=== PATIENT | female | born 1980 | race Caucasian/White ===

== ENCOUNTER 2016-03-24 20:15 | Inpatient (IN) | payer OTHER ==
[2016-03-24 20:19] VITALS: O2SAT 96
[2016-03-24] MEDS ORDERED: ceFAZolin 2 GM PREMIX 50 ML ONE (20:31)
[2016-03-24] MEDS ORDERED: MORPHINE SULFATE 8 MG/ML INJ ONE (20:31)
[2016-03-24] MEDS ORDERED: ONDANSETRON HCL 4 MG/2 ML VIAL ONE (20:32)
[2016-03-24] MEDS ORDERED: ceFAZolin 2 GM PREMIX 50 ML IV STA (20:53)
[2016-03-24] MEDS ORDERED: DIPHTH/TETANUS/ACEL PERTUSSIS (BOOSTER) 0.5 ML VIAL/PFS IM ONE (20:53)
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
[2016-03-24 20:59] LABS: I-STAT POTASSIUM 3.9 MMOL/L (3.5-4.9)
[2016-03-24 21:02] LABS: AUTOMATED NEUTROPHIL # 7.9 TH/MM3 (1.8-7.7); BASOPHIL # 0.1 TH/MM3 (0-0.2); BASOPHIL % 0.5 % (0.0-2.0); EOSINOPHIL # 0.2 TH/MM3 (0-0.4); EOSINOPHIL % 1.6 % (0.0-4.0); HEMATOCRIT 40.4 % (35.0-46.0); LYMPHOCYTE # 5.8 TH/MM3 (1.0-4.8); MEAN CELL VOLUME 85.6 FL (80.0-100.0); MEAN CORPUSCULAR HEMOGLOBIN 29.5 PG (27.0-34.0); MEAN CORPUSCULAR HGB CONC 34.5 % (32.0-36.0); MONO % 5.9 % (0.0-8.0); PLATELET COUNT 480 TH/MM3 (150-450); RED BLOOD COUNT 4.72 MIL/MM3 (4.00-5.30); RED CELL DISTRIBUTION WIDTH 14.2 % (11.6-17.2); WHITE BLOOD COUNT 14.9 TH/MM3 (4.0-11.0)
[2016-03-24 21:04] LABS: HEMO FLAGS AUTO DIFF
[2016-03-24 21:12] LABS: APTT (PATIENT) 23.1 SEC (24.3-30.1); PROTHROMBIN TIME - PATIENT 10.6 SEC (9.8-11.6)
[2016-03-24] MEDS: SODIUM CHLOR 0.9% 1000 ML INJ 1,000 ML IV SCH (21:39)
[2016-03-24] MEDS ORDERED: IOHEXOL 350 MG/ML 10 ML VIAL (for RAD DIAG) IV ONE (21:44)
[2016-03-24] MEDS ORDERED: ONDANSETRON HCL 4 MG/2 ML VIAL IV PRN (21:45)
[2016-03-24] MEDS ORDERED: CHLORHEXIDINE GLUCONATE 2 % 1 PACK (2 CLOTHS) TOP PRN (21:45)
[2016-03-24] MEDS ORDERED: MISCELLANEOUS NURSING INFORMATION XX SCH (21:45)
[2016-03-24] MEDS ORDERED: ENALAPRILAT 1.25 MG/ML VIAL IV PRN (21:45)
[2016-03-24] MEDS ORDERED: MAGNESIUM HYDROXIDE SUSP 30 ML CUP PO PRN (21:45)
[2016-03-24 21:49] LABS: BANDS 3 % (0-6); MYELOCYTES 2 % (0-0); NEUTROPHIL # MANUAL DIFF 6.9 TH/MM3 (1.8-7.7); POLYS (SEG NEUTROPHILS) 41 % (16-70); WBC DIFF SAMPLE 100
[2016-03-24 21:50] LABS: PLATELET ESTIMATE SMEAR HIGH (NORMAL); PLATELET MORPHOLOGY NORMAL (NORMAL); SCAN/DIFF FINAL DIFF MANUAL
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
[2016-03-24 22:00] VITALS: PULSE 100
[2016-03-24] MEDS: PANTOPRAZOLE SODIUM 40 MG VIAL IVP SCH (22:00)
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
[2016-03-24 22:42] LABS: AMPHETAMINE, URINE POS (NEG); BARBITURATES, URINE NEG (NEG); COCAINE, URINE NEG (NEG)
[2016-03-24 22:43] LABS: BLOOD, URINE MOD (NEG); COMMENT (UR) CULT NOT INDICATED; CULTURE IF INDICATED CULT NOT INDICATED; GLUCOSE,URINE TRACE mg/dL (NEG); KETONE, URINE NEG (NEG); MUCUS URINE FEW /lpf (OCC); NITRITE,URINE NEG (NEG); PH, URINE 6.5 (5.0-8.5); SQUAMOUS EPITHELIAL CELL URINE 2 /hpf (0-5); URINE COLOR YELLOW (YELLW/STRAW)
[2016-03-24] MEDS: HYDROmorphone HCL PF 1 MG/ML VIAL IV PRN (23:00)
[2016-03-24] MEDS ORDERED: oxyCODONE/ACETAMINOPHEN 5 MG/325 MG TAB PO PRN (23:00)
[2016-03-25] VITALS (10 sets, daily range): BP systolic 117–139; BP diastolic 67–78; PULSE 92–110; RESP 13–24; TEMP 97.6–98.2; O2SAT 96–100
[2016-03-25] MEDS: HYDROmorphone HCL PF 1 MG/ML VIAL IV PRN ×6 (02:03→21:38)
[2016-03-25] MEDS: oxyCODONE/ACETAMINOPHEN 10 MG/325 MG TAB PO PRN ×3 (03:30→20:21)
[2016-03-25] MEDS: CHLORHEXIDINE GLUCONATE 2 % 1 PACK (2 CLOTHS) TOP SCH (04:00)
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
[2016-03-25] MEDS: SODIUM CHLOR 0.9% 1000 ML INJ 1,000 ML IV SCH ×2 (06:47→17:39)
[2016-03-25] MEDS: DOCUSATE SODIUM 50 MG/SENNA 8.6 MG TAB PO SCH ×2 (08:45→21:30)
[2016-03-25] MEDS ORDERED: MAGNESIUM SULFATE INJ 2 GM in SODIUM CHLORIDE 0.9% INJ 96 ML IV PRN (08:45)
[2016-03-25] MEDS ORDERED: MAGNESIUM OXIDE 400 MG TAB PO PRN (08:45)
[2016-03-25] MEDS ORDERED: SODIUM PHOSPHATE INJ 30 MMOL in SODIUM CHLOR 0.9% 250 ML INJ 240 ML IV PRN (08:45)
[2016-03-25] MEDS ORDERED: POTASSIUM CHLOR 20 MEQ PREMIX 100 ML IV PRN ×2 (08:45)
[2016-03-25] MEDS ORDERED: POTASSIUM PHOSPHATE MONOBASIC 500 MG TAB PO/TUBE PRN (08:45)
[2016-03-25] MEDS: BACITRACIN TOP OINT 15 GM TUBE TOP SCH ×2 (08:45→21:39)
[2016-03-25] MEDS ORDERED: MAGNESIUM SULFATE INJ 4 GM in SODIUM CHLORIDE 0.9% INJ 92 ML IV PRN (08:45)
[2016-03-25] MEDS ORDERED: POTASSIUM PHOSPHATE INJ 30 MMOL in SODIUM CHLOR 0.9% 250 ML INJ 250 ML IV PRN (08:45)
[2016-03-25] MEDS ORDERED: RESP: ALBUTEROL 2.5 MG/3 ML NEB (PRN) NEB (08:45)
[2016-03-25] MEDS ORDERED: POTASSIUM CL 40 MEQ/30 ML LIQ UDC PO/TUBE PRN ×2 (08:45)
[2016-03-25] MEDS ORDERED: POTASSIUM CHLOR 40 MEQ PREMIX 100 ML IV-CENTRAL PRN ×2 (08:45)
[2016-03-25] MEDS ORDERED: POTASSIUM PHOSPHATE MONOBASIC 500 MG TAB PO PRN (08:45)
[2016-03-25] MEDS: METHOCARBAMOL 500 MG TAB PO SCH ×4 (08:46→21:30)
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
[2016-03-25] MEDS ORDERED: DOCUSATE SODIUM 100 MG CAP PO SCH (09:00)
[2016-03-25] MEDS: MAGNESIUM HYDROXIDE SUSP 30 ML CUP PO SCH (09:00)
[2016-03-25] MEDS: RESP: ALBUTEROL 2.5 MG/IPRATROPIUM 0.5 MG NEB (PRN) NEB (09:00)
[2016-03-25] MEDS: LIDOCAINE HCL 5% PATCH TD SCH (11:04)
[2016-03-25] MEDS: NICOTINE 14 MG/24 HR PATCH TD SCH (11:13)
[2016-03-25] MEDS: RESP: ALBUTEROL 2.5 MG/IPRATROPIUM 0.5 MG NEB (SCH) NEB ×3 (11:43→20:56)
[2016-03-25 12:58] LABS: AUTOMATED NEUTROPHIL # 9.5 TH/MM3 (1.8-7.7); BASOPHIL % 0.3 % (0.0-2.0); EOSINOPHIL % 0.2 % (0.0-4.0); HEMO FLAGS DIFF FINAL; LYMPH % 15.9 % (9.0-44.0); MEAN CELL VOLUME 87.6 FL (80.0-100.0); MEAN CORPUSCULAR HEMOGLOBIN 29.1 PG (27.0-34.0); MEAN CORPUSCULAR HGB CONC 33.2 % (32.0-36.0); MONO % 7.3 % (0.0-8.0); NEUT % 76.3 % (16.0-70.0); PLATELET COUNT 329 TH/MM3 (150-450); RED BLOOD COUNT 3.99 MIL/MM3 (4.00-5.30); RED CELL DISTRIBUTION WIDTH 14.3 % (11.6-17.2); WHITE BLOOD COUNT 12.5 TH/MM3 (4.0-11.0)
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
[2016-03-25 13:13] LABS: ALKALINE PHOSPHATASE 56 U/L (45-117); ALT (GPT) 48 U/L (10-53); ANION GAP 7 MEQ/L (5-15); AST (GOT) 33 U/L (15-37); BICARBONATE 23.2 MEQ/L (21.0-32.0); BLOOD UREA NITROGEN 16 MG/DL (7-18); CHLORIDE 111 MEQ/L (98-107); GLOMERULAR FILTRATION RATE 95 ML/MIN (>89); POTASSIUM 4.2 MEQ/L (3.5-5.1); SODIUM (NA) 141 MEQ/L (136-145); TOTAL BILIRUBIN ADULT 0.4 MG/DL (0.2-1.0)
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
[2016-03-25] MEDS: REMOVE OLD PATCH-LIDOCAINE T-DERMAL SCH (21:00)
[2016-03-25] MEDS: REMOVE OLD NICODERM (NICOTINE) PATCH TD SCH (21:00)
[2016-03-25] MEDS: PANTOPRAZOLE SODIUM 40 MG VIAL IVP SCH (21:30)
[2016-03-25] MEDS: SODIUM CHLORIDE 0.9% FLUSH 5 ML FLUSH IVF PRN (21:39)
[2016-03-26] VITALS (10 sets, daily range): BP systolic 116–154; BP diastolic 65–94; PULSE 85–122; RESP 18; TEMP 96.7–100; O2SAT 88–94
[2016-03-26] MEDS: oxyCODONE/ACETAMINOPHEN 10 MG/325 MG TAB PO PRN ×5 (00:18→17:58)
[2016-03-26] MEDS: RESP: ALBUTEROL 2.5 MG/IPRATROPIUM 0.5 MG NEB (SCH) NEB ×8 (00:48→23:37)
[2016-03-26] MEDS: HYDROmorphone HCL PF 1 MG/ML VIAL IV PRN ×8 (01:08→23:43)
[2016-03-26] MEDS: SODIUM CHLOR 0.9% 1000 ML INJ 1,000 ML IV SCH ×3 (02:10→23:47)
[2016-03-26] MEDS: CHLORHEXIDINE GLUCONATE 2 % 1 PACK (2 CLOTHS) TOP SCH (04:00)
[2016-03-26] MEDS: METHOCARBAMOL 500 MG TAB PO SCH ×3 (05:31→20:48)
[2016-03-26] MEDS ORDERED: LACTULOSE SYRUP 20 GM/30 ML CUP PO ONE (08:15)
[2016-03-26] MEDS: LIDOCAINE HCL 5% PATCH TD SCH (09:47)
[2016-03-26] MEDS: NICOTINE 14 MG/24 HR PATCH TD SCH (09:47)
[2016-03-26] MEDS: MAGNESIUM HYDROXIDE SUSP 30 ML CUP PO SCH (09:49)
[2016-03-26] MEDS: BACITRACIN TOP OINT 15 GM TUBE TOP SCH ×2 (09:50→20:52)
[2016-03-26] MEDS: DOCUSATE SODIUM 50 MG/SENNA 8.6 MG TAB PO SCH ×2 (09:51→20:48)
[2016-03-26 10:44] LABS: HEMATOCRIT 31.8 % (35.0-46.0); REVIEW FLAG FINAL
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
[2016-03-26] MEDS: PANTOPRAZOLE SOD 40 MG DELAYED RELEASE TAB PO SCH (20:48)
[2016-03-26] MEDS: REMOVE OLD PATCH-LIDOCAINE T-DERMAL SCH (20:50)
[2016-03-26] MEDS: REMOVE OLD NICODERM (NICOTINE) PATCH TD SCH (20:50)
[2016-03-27] VITALS (9 sets, daily range): BP systolic 110–161; BP diastolic 73–97; PULSE 109–127; RESP 16–22; TEMP 95.6–99.3; O2SAT 91–97
[2016-03-27] MEDS: RESP: ALBUTEROL 2.5 MG/IPRATROPIUM 0.5 MG NEB (PRN) NEB (02:07)
[2016-03-27] MEDS: HYDROmorphone HCL PF 1 MG/ML VIAL IV PRN ×2 (02:57→05:58)
[2016-03-27] MEDS: CHLORHEXIDINE GLUCONATE 2 % 1 PACK (2 CLOTHS) TOP SCH (04:00)
[2016-03-27] MEDS: RESP: ALBUTEROL 2.5 MG/IPRATROPIUM 0.5 MG NEB (SCH) NEB ×5 (04:13→21:21)
[2016-03-27] MEDS: METHOCARBAMOL 500 MG TAB PO SCH ×3 (05:58→21:14)
[2016-03-27] MEDS ORDERED: WALKER WHEELS/F1 MIS (06:22)
[2016-03-27] MEDS: oxyCODONE/ACETAMINOPHEN 10 MG/325 MG TAB PO PRN ×4 (07:37→21:14)
[2016-03-27] MEDS ORDERED: LACTULOSE SYRUP 20 GM/30 ML CUP PO ONE (08:00)
[2016-03-27] MEDS ORDERED: BISACODYL EC 5 MG TABEC PO ONE (08:00)
[2016-03-27] MEDS ORDERED: BISACODYL 10 MG SUPP RECTAL ONE (08:00)
[2016-03-27] MEDS: NICOTINE 14 MG/24 HR PATCH TD SCH (08:44)
[2016-03-27] MEDS: LIDOCAINE HCL 5% PATCH TD SCH (08:44)
[2016-03-27] MEDS: MAGNESIUM HYDROXIDE SUSP 30 ML CUP PO SCH (08:45)
[2016-03-27] MEDS: BACITRACIN TOP OINT 15 GM TUBE TOP SCH ×2 (08:45→21:16)
[2016-03-27] MEDS: DOCUSATE SODIUM 50 MG/SENNA 8.6 MG TAB PO SCH ×2 (08:45→21:14)
[2016-03-27 08:53] LABS: HEMATOCRIT 34.7 % (35.0-46.0); HEMO FLAGS AUTO DIFF; MEAN CELL VOLUME 86.2 FL (80.0-100.0); MEAN CORPUSCULAR HEMOGLOBIN 28.3 PG (27.0-34.0); MEAN CORPUSCULAR HGB CONC 32.8 % (32.0-36.0); PLATELET COUNT 234 TH/MM3 (150-450); RED BLOOD COUNT 4.02 MIL/MM3 (4.00-5.30); RED CELL DISTRIBUTION WIDTH 14.4 % (11.6-17.2); WHITE BLOOD COUNT 12.9 TH/MM3 (4.0-11.0)
[2016-03-27 09:06] LABS: ALKALINE PHOSPHATASE 59 U/L (45-117); ALT (GPT) 37 U/L (10-53); ANION GAP 10 MEQ/L (5-15); AST (GOT) 49 U/L (15-37); BICARBONATE 23.1 MEQ/L (21.0-32.0); CHLORIDE 102 MEQ/L (98-107); GLOMERULAR FILTRATION RATE 97 ML/MIN (>89); MAGNESIUM 1.9 MG/DL (1.5-2.5); SODIUM (NA) 135 MEQ/L (136-145); TOTAL BILIRUBIN ADULT 0.7 MG/DL (0.2-1.0)
[2016-03-27 09:17] LABS: BLOOD UREA NITROGEN 5 MG/DL (7-18)
[2016-03-27 09:35] LABS: EOSINOPHILS 2 % (0-4); NEUTROPHIL # MANUAL DIFF 9.8 TH/MM3 (1.8-7.7); PLATELET ESTIMATE SMEAR NORMAL (NORMAL); PLATELET MORPHOLOGY NORMAL (NORMAL); POLYS (SEG NEUTROPHILS) 76 % (16-70); SCAN/DIFF FINAL DIFF MANUAL; WBC DIFF SAMPLE 100
[2016-03-27] MEDS: SODIUM CHLOR 0.9% 1000 ML INJ 1,000 ML IV SCH ×2 (11:43→19:39)
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
[2016-03-27] MEDS ORDERED: SENN1TAB PO (13:35)
[2016-03-27] MEDS ORDERED: MILKSUS PO (13:35)
[2016-03-27] MEDS ORDERED: OXYGENTANK NAS.CANULA (15:55)
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
[2016-03-27] MEDS: REMOVE OLD PATCH-LIDOCAINE T-DERMAL SCH (21:00)
[2016-03-27] MEDS: REMOVE OLD NICODERM (NICOTINE) PATCH TD SCH (21:00)
[2016-03-27] MEDS: PANTOPRAZOLE SOD 40 MG DELAYED RELEASE TAB PO SCH (21:14)
[2016-03-28] VITALS (14 sets, daily range): BP systolic 118–141; BP diastolic 73–92; PULSE 111–125; RESP 18–22; TEMP 98.1–99.5; O2SAT 91–98
[2016-03-28] MEDS: RESP: ALBUTEROL 2.5 MG/IPRATROPIUM 0.5 MG NEB (SCH) NEB ×6 (00:12→19:33)
[2016-03-28] MEDS: oxyCODONE/ACETAMINOPHEN 10 MG/325 MG TAB PO PRN ×5 (01:15→22:30)
[2016-03-28] MEDS: CHLORHEXIDINE GLUCONATE 2 % 1 PACK (2 CLOTHS) TOP SCH (03:35)
[2016-03-28] MEDS: METHOCARBAMOL 500 MG TAB PO SCH ×3 (05:36→21:08)
[2016-03-28] MEDS: SODIUM CHLOR 0.9% 1000 ML INJ 1,000 ML IV SCH ×2 (05:39→15:39)
[2016-03-28] MEDS: DOCUSATE SODIUM 50 MG/SENNA 8.6 MG TAB PO SCH ×2 (09:30→21:08)
[2016-03-28] MEDS: NICOTINE 14 MG/24 HR PATCH TD SCH (09:30)
[2016-03-28] MEDS: MAGNESIUM HYDROXIDE SUSP 30 ML CUP PO SCH (09:30)
[2016-03-28] MEDS: BACITRACIN TOP OINT 15 GM TUBE TOP SCH ×2 (09:31→21:17)
[2016-03-28] MEDS: LIDOCAINE HCL 5% PATCH TD SCH (09:31)
[2016-03-28] MEDS ORDERED: OXYC1TAB36 PO (12:34)
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
[2016-03-28] MEDS: REMOVE OLD NICODERM (NICOTINE) PATCH TD SCH (21:00)
[2016-03-28] MEDS: REMOVE OLD PATCH-LIDOCAINE T-DERMAL SCH (21:00)
[2016-03-28] MEDS: PANTOPRAZOLE SOD 40 MG DELAYED RELEASE TAB PO SCH (21:08)
[2016-03-29] VITALS (9 sets, daily range): BP systolic 109–164; BP diastolic 73–96; PULSE 82–101; RESP 18–20; TEMP 96.7–98.6; O2SAT 90–98
[2016-03-29] MEDS: RESP: ALBUTEROL 2.5 MG/IPRATROPIUM 0.5 MG NEB (SCH) NEB ×2 (01:09→04:54)
[2016-03-29] MEDS: oxyCODONE/ACETAMINOPHEN 10 MG/325 MG TAB PO PRN ×3 (02:41→10:24)
[2016-03-29] MEDS: CHLORHEXIDINE GLUCONATE 2 % 1 PACK (2 CLOTHS) TOP SCH (04:00)
[2016-03-29] MEDS: METHOCARBAMOL 500 MG TAB PO SCH ×3 (06:24→21:01)
[2016-03-29] MEDS: MAGNESIUM HYDROXIDE SUSP 30 ML CUP PO SCH (09:19)
[2016-03-29] MEDS: DOCUSATE SODIUM 50 MG/SENNA 8.6 MG TAB PO SCH ×2 (09:19→21:01)
[2016-03-29] MEDS: NICOTINE 14 MG/24 HR PATCH TD SCH (09:19)
[2016-03-29] MEDS: LIDOCAINE HCL 5% PATCH TD SCH (09:20)
[2016-03-29] MEDS: BACITRACIN TOP OINT 15 GM TUBE TOP SCH ×2 (09:23→21:00)
[2016-03-29] MEDS: RESP: ALBUTEROL 2.5 MG/IPRATROPIUM 0.5 MG NEB (PRN) NEB (13:02)
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
[2016-03-29] MEDS ORDERED: oxyCODONE/ACETAMINOPHEN 7.5 MG/325 MG TAB PO PRN (14:00)
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
[2016-03-29] MEDS: oxyCODONE/ACETAMINOPHEN 7.5 MG/325 MG TAB PO PRN ×2 (18:13→22:51)
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
[2016-03-29] MEDS: REMOVE OLD PATCH-LIDOCAINE T-DERMAL SCH (21:00)
[2016-03-29] MEDS: REMOVE OLD NICODERM (NICOTINE) PATCH TD SCH (21:00)
[2016-03-29] MEDS: PANTOPRAZOLE SOD 40 MG DELAYED RELEASE TAB PO SCH (21:01)
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
[2016-03-30] VITALS (9 sets, daily range): BP systolic 111–132; BP diastolic 75–86; PULSE 83–96; RESP 18–21; TEMP 96.9–97.8; O2SAT 93–97
[2016-03-30] MEDS: CHLORHEXIDINE GLUCONATE 2 % 1 PACK (2 CLOTHS) TOP SCH (04:00)
[2016-03-30] MEDS: oxyCODONE/ACETAMINOPHEN 7.5 MG/325 MG TAB PO PRN ×5 (04:00→21:25)
[2016-03-30] MEDS: METHOCARBAMOL 500 MG TAB PO SCH ×3 (05:23→21:25)
[2016-03-30] MEDS: NICOTINE 14 MG/24 HR PATCH TD SCH (08:35)
[2016-03-30] MEDS: DOCUSATE SODIUM 50 MG/SENNA 8.6 MG TAB PO SCH ×2 (08:36→21:25)
[2016-03-30] MEDS: MAGNESIUM HYDROXIDE SUSP 30 ML CUP PO SCH (08:36)
[2016-03-30] MEDS: BACITRACIN TOP OINT 15 GM TUBE TOP SCH ×2 (08:39→21:00)
[2016-03-30] MEDS: LIDOCAINE HCL 5% PATCH TD SCH (08:42)
[2016-03-30 08:43] LABS: BICARBONATE 25.7 MEQ/L (21.0-32.0); POTASSIUM 4.3 MEQ/L (3.5-5.1)
[2016-03-30 08:53] LABS: AUTOMATED NEUTROPHIL # 3.1 TH/MM3 (1.8-7.7); BASOPHIL % 0.5 % (0.0-2.0); EOSINOPHIL # 0.3 TH/MM3 (0-0.4); EOSINOPHIL % 4.9 % (0.0-4.0); HEMATOCRIT 33.2 % (35.0-46.0); HEMO FLAGS DIFF FINAL; LYMPHOCYTE # 1.7 TH/MM3 (1.0-4.8); MEAN CELL VOLUME 86.2 FL (80.0-100.0); MEAN CORPUSCULAR HEMOGLOBIN 28.6 PG (27.0-34.0); MEAN CORPUSCULAR HGB CONC 33.2 % (32.0-36.0); MONO % 6.2 % (0.0-8.0); NEUT % 57.4 % (16.0-70.0); PLATELET COUNT 269 TH/MM3 (150-450); RED BLOOD COUNT 3.85 MIL/MM3 (4.00-5.30); RED CELL DISTRIBUTION WIDTH 14.4 % (11.6-17.2); WHITE BLOOD COUNT 5.4 TH/MM3 (4.0-11.0)
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
--- NOTE | 2016-03-30 14:28 | PD.POD ---
Subjective Podiatric Problems Pt in bed with CAM boots on feet Pain score: 5 Past Med/Surg/Social History Social History Smoking Status: Heavy Tobacco Smoker Objective Vital Signs Vital Signs Date Time Temp Pulse Resp B/P Pulse Ox O2 Delivery O2 Flow Rate FiO2 03/30/16 12:00 97.8 96 20 118/81 96 03/30/16 09:28 94 Nasal Cannula 21 03/30/16 08:45 96 03/30/16 08:00 97.0 87 21 132/86 93 03/30/16 04:00 96.9 87 20 132/78 97 03/29/16 23:12 90 03/29/16 20:00 96.8 91 20 164/91 98 03/29/16 16:00 93 03/29/16 16:00 98.6 101 20 123/77 93 Coded Allergies: No Known Allergies (Unverified , 03/24/16) Other Results Ct right foot showed first met base fracture, no sign of TMt involvement or lis franc rupture/dislocation Physical Exam Remarks Right - Mild edema, tenderness along first met base laterally and plantar Left-Tenderness at PT insertiona nd medial side of navicular Can move both ankle up and down Neurovascularly intact Assessment & Plan Diagnosis: (1) Fracture of first metatarsal bone of right foot Status: Acute (2) Closed navicular fracture of left foot Status: Acute A/P Plan is: Right foot PWB on heel-No surgery indicated but fracture has tendency to become unstable if compliance not met-compliance entails elevation, rest, heel strike, PWB and cam boot at all times-Pt may get foot weight but no weight bearing when in shower/bathing without proper support Left foot WBAT in CAm boot-Use left foot to pivot or transition and only really using right foot for balance and stabilizing and transitioning using the heel Will get repeat Xrays at 4 weeks to see bone bridging and should at that point allow full weight being right foot in CAM boot and gradual progression out of CAM boot on the left Problem Qualifiers (1) Fracture of first metatarsal bone of right foot: Dewey Juan DPM Mar 30, 2016 14:28
[2016-03-30] MEDS: REMOVE OLD NICODERM (NICOTINE) PATCH TD SCH (21:00)
[2016-03-30] MEDS: REMOVE OLD PATCH-LIDOCAINE T-DERMAL SCH (21:00)
[2016-03-30] MEDS: PANTOPRAZOLE SOD 40 MG DELAYED RELEASE TAB PO SCH (21:25)
[2016-03-31 04:00] VITALS: BP 129/85; PULSE 86; RESP 18; TEMP 95.5; O2SAT 98
[2016-03-31] MEDS: CHLORHEXIDINE GLUCONATE 2 % 1 PACK (2 CLOTHS) TOP SCH (04:00)
[2016-03-31] MEDS: METHOCARBAMOL 500 MG TAB PO SCH ×3 (05:30→22:42)
[2016-03-31] MEDS: oxyCODONE/ACETAMINOPHEN 7.5 MG/325 MG TAB PO PRN ×5 (05:31→22:43)
[2016-03-31 08:00] VITALS: BP 118/74; PULSE 77; RESP 16; TEMP 96.1; O2SAT 93
[2016-03-31 08:57] VITALS: O2SAT 92
[2016-03-31] MEDS: BACITRACIN TOP OINT 15 GM TUBE TOP SCH ×2 (09:00→22:46)
[2016-03-31] MEDS: LIDOCAINE HCL 5% PATCH TD SCH (09:01)
[2016-03-31] MEDS: NICOTINE 14 MG/24 HR PATCH TD SCH (09:01)
[2016-03-31] MEDS: DOCUSATE SODIUM 50 MG/SENNA 8.6 MG TAB PO SCH ×2 (09:01→22:42)
[2016-03-31] MEDS: MAGNESIUM HYDROXIDE SUSP 30 ML CUP PO SCH (09:01)
[2016-03-31 12:00] VITALS: BP 97/65; PULSE 80; RESP 16; TEMP 97.2; O2SAT 94
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
[2016-03-31] MEDS: guaiFENesin SOLUTION 200 MG/10 ML CUP PO PRN ×2 (13:02→18:27)
[2016-03-31 16:00] VITALS: BP 144/93; PULSE 108; RESP 16; TEMP 96.9; O2SAT 95
[2016-03-31 20:00] VITALS: BP 123/80; PULSE 98; RESP 20; TEMP 97.7; O2SAT 95
[2016-03-31] MEDS: REMOVE OLD PATCH-LIDOCAINE T-DERMAL SCH (21:00)
[2016-03-31] MEDS: REMOVE OLD NICODERM (NICOTINE) PATCH TD SCH (21:00)
[2016-03-31] MEDS: PANTOPRAZOLE SOD 40 MG DELAYED RELEASE TAB PO SCH (22:42)
[2016-04-01] VITALS (8 sets, daily range): BP systolic 110–128; BP diastolic 63–81; PULSE 73–103; RESP 18–20; TEMP 93.7–97.7; O2SAT 94–97
[2016-04-01] MEDS: guaiFENesin SOLUTION 200 MG/10 ML CUP PO PRN ×3 (00:28→21:51)
[2016-04-01] MEDS: CHLORHEXIDINE GLUCONATE 2 % 1 PACK (2 CLOTHS) TOP SCH (03:43)
[2016-04-01] MEDS: oxyCODONE/ACETAMINOPHEN 7.5 MG/325 MG TAB PO PRN ×5 (03:43→21:45)
[2016-04-01] MEDS: METHOCARBAMOL 500 MG TAB PO SCH ×3 (06:18→21:44)
[2016-04-01] MEDS: BACITRACIN TOP OINT 15 GM TUBE TOP SCH ×2 (09:00→21:46)
[2016-04-01] MEDS: SODIUM CHLORIDE 0.9% FLUSH 5 ML FLUSH IVF PRN (09:01)
[2016-04-01] MEDS: NICOTINE 14 MG/24 HR PATCH TD SCH (09:01)
[2016-04-01] MEDS: DOCUSATE SODIUM 50 MG/SENNA 8.6 MG TAB PO SCH ×2 (09:01→21:44)
[2016-04-01] MEDS: MAGNESIUM HYDROXIDE SUSP 30 ML CUP PO SCH (09:01)
[2016-04-01] MEDS: LIDOCAINE HCL 5% PATCH TD SCH (09:02)
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
[2016-04-01] MEDS: REMOVE OLD PATCH-LIDOCAINE T-DERMAL SCH (21:00)
[2016-04-01] MEDS: REMOVE OLD NICODERM (NICOTINE) PATCH TD SCH (21:00)
[2016-04-01] MEDS: PANTOPRAZOLE SOD 40 MG DELAYED RELEASE TAB PO SCH (21:44)
[2016-04-02] VITALS (7 sets, daily range): BP systolic 93–129; BP diastolic 55–84; PULSE 74–96; RESP 18–20; TEMP 96.2–97.4; O2SAT 94–98
[2016-04-02] MEDS: oxyCODONE/ACETAMINOPHEN 7.5 MG/325 MG TAB PO PRN ×3 (01:05→09:41)
[2016-04-02] MEDS: CHLORHEXIDINE GLUCONATE 2 % 1 PACK (2 CLOTHS) TOP SCH (04:00)
[2016-04-02] MEDS: METHOCARBAMOL 500 MG TAB PO SCH (05:47)
[2016-04-02] MEDS: LIDOCAINE HCL 5% PATCH TD SCH (08:31)
[2016-04-02] MEDS: MAGNESIUM HYDROXIDE SUSP 30 ML CUP PO SCH (08:31)
[2016-04-02] MEDS: NICOTINE 14 MG/24 HR PATCH TD SCH (08:31)
[2016-04-02] MEDS: DOCUSATE SODIUM 50 MG/SENNA 8.6 MG TAB PO SCH (08:31)
[2016-04-02] MEDS: BACITRACIN TOP OINT 15 GM TUBE TOP SCH (08:31)
[2016-04-02] MEDS: guaiFENesin SOLUTION 200 MG/10 ML CUP PO PRN (08:36)
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
== END 2016-04-02 12:29 | disposition home or self-care (01) | DRG 964 ==
LOC: NEPI 20:15 → EDBD 20:57 → NEDA 20:57 → N03A 21:09 → N05B 03-25 17:26 → N05A 03-26 22:23
PROVIDERS: ADMIT Internal Medicine; ATTEND Internal Medicine
DX: S37.041A Minor laceration of right kidney, initial encounter (principal); S22.41XA Multiple fractures of ribs, right side, initial encounter for closed fracture; S27.322A Contusion of lung, bilateral, initial encounter; S06.0X9A Concussion with loss of consciousness of unspecified duration, initial encounter; S80.211A Abrasion, right knee, initial encounter; R40.2413 Glasgow coma scale score 13-15, at hospital admission; S90.812A Abrasion, left foot, initial encounter; S90.811A Abrasion, right foot, initial encounter; S90.411A Abrasion, right great toe, initial encounter; S92.255A Nondisplaced fracture of navicular [scaphoid] of left foot, initial encounter for closed fracture; S92.311A Displaced fracture of first metatarsal bone, right foot, initial encounter for closed fracture; M62.838 Other muscle spasm; J44.9 Chronic obstructive pulmonary disease, unspecified; I10 Essential (primary) hypertension; F17.210 Nicotine dependence, cigarettes, uncomplicated; V23.5XXA Motorcycle passenger injured in collision with car, pick-up truck or van in traffic accident, initial encounter
CPT/HCPCS: 70450; 71010; 71260; 72125; 72128; 72131; 72170; 73110; 73630; 73700; 74177; 80048; 80053; 80307; 81001; 82435; 82565; 82947; 83735; 84100; 84132; 84295; 84520; 85007; 85014; 85018; 85025; 85027; 85610; 85730; 86077; 86850; 86870; 86900; 86901; 86902; 86920; 86922; 90471; 90715; 94150; 94620; 94640; 94664; 94667; 94668; 96374; 96375; 99291; C9113; G0390; J0690; J1170; J2270; J2405; J7030; L0150; L0172; L2114; Q9967

== ENCOUNTER 2016-04-09 12:46 | Emergency (ER) | payer OTHER ==
[~2016-04-09] VITALS: Ht 149.9 cm; Wt 68.2 kg
[~2016-04-09 12:46] MED LIST: MILKSUS PO; OXYC1TAB36 PO; OXYGENTANK NAS.CANULA; SENN1TAB PO; WALKER WHEELS/F1 MIS
[2016-04-09 12:48] VITALS: BP_SYST 190; BP_DIAS 11; BP_DIAS 111; PULSE 133; RESP 18; TEMP 97.8; O2SAT 97
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
--- NOTE | 2016-04-09 13:45 | RADRPT ---
EXAM DATE/TIME: 04/09/2016 13:46 [facility] COMPARISON: CHEST SINGLE AP, March 27, 2016, 16:03. INDICATIONS : Right rib pain, shortness of breath. MEDICAL HISTORY : Multiple right rib fractures. SURGICAL HISTORY : None. ENCOUNTER: Initial ACUITY: 2 weeks PAIN SCORE: 10/10 LOCATION: Right chest FINDINGS: A single view of the chest demonstrates the lungs to be symmetrically aerated without evidence of mas s, infiltrate or effusion. The cardiomediastinal contours are unremarkable. Right-sided rib fracture s. No pneumothorax. CONCLUSION: No acute disease. Gideon Webb MD on April 09, 2016 at 13:42 Board Certified Radiologist. This report was verified electronically.
[2016-04-09 14:05] LABS: BACTERIA, URINE RARE /hpf; BLOOD, URINE NEG (NEG); GLUCOSE,URINE NEG (NEG); KETONE, URINE NEG (NEG); MUCUS URINE FEW /lpf (OCC); NITRITE,URINE NEG (NEG); SQUAMOUS EPITHELIAL CELL URINE 3 /hpf (0-5); URINE COLOR YELLOW (YELLW/STRAW)
[2016-04-09 14:13] LABS: COMMENT (UR) CATH-CULTURE IND; CULTURE IF INDICATED CATH CULTURE IND
== END 2016-04-09 14:45 | disposition left against medical advice (07) ==
LOC: NETRI 12:46
DX: R30.0 Dysuria (principal); R05 Cough; M54.9 Dorsalgia, unspecified; R00.0 Tachycardia, unspecified; Z72.0 Tobacco use; Z53.20 Procedure and treatment not carried out because of patient's decision for unspecified reasons; Z86.59 Personal history of other mental and behavioral disorders; Z86.79 Personal history of other diseases of the circulatory system; Z86.69 Personal history of other diseases of the nervous system and sense organs; Z87.828 Personal history of other (healed) physical injury and trauma
CPT/HCPCS: 71010; 81001; 84703; 87086; 99284